=== PATIENT | male | born 1985 | race Caucasian/White ===

== ENCOUNTER 2016-09-05 16:32 | Emergency (ER) | payer MEDICAID ==
[2016-09-05 16:38] VITALS: TEMP 98.5; O2SAT 98
--- NOTE | 2016-09-05 17:17 | C.PDOC ---
Time Seen by Provider: 09/05/16 16:49 Chief Complaint (Nursing): Abnormal Skin Integrity Past Medical History Vital Signs: Last Vital Signs Temp 98.5 F 09/05/16 16:35 Pulse 90 09/05/16 16:35 Resp 16 09/05/16 16:35 BP 109/64 09/05/16 16:35 Pulse Ox 98 09/05/16 16:35 Family History: States: Unknown Family Hx - Social History Hx Alcohol Use: No Hx Substance Use: No - Immunization History Hx Tetanus Toxoid Vaccination: Yes Hx Influenza Vaccination: Yes Hx Pneumococcal Vaccination: Yes ED Course And Treatment O2 Sat by Pulse Oximetry: 98 Disposition - Disposition Additional Instructions: [email or web address] Dayana Juancarlos, IRLANDA (ASCP), JOMAR ([facility]) -[place] [phone]
--- NOTE | 2016-09-05 17:20 | C.PDOC ---
History Of Present Illness 30-year-old male, PMHx includes HS, presents to the emergency department with complaints of an abscess to left buttoc, that he developed a few days ago. Patient states he has a Hx of intermittent abscesses due to HS. Denies any fevers, nausea/vomiting, or any other associated symptoms. No other complaints at this time. Time Seen by Provider: 09/05/16 16:49 Chief Complaint (Nursing): Abnormal Skin Integrity History Per: Patient History/Exam Limitations: no limitations Onset/Duration Of Symptoms: Days Current Symptoms Are (Timing): Still Present Location Of Injury: Left: Buttock Quality Of Symptoms: Painful Severity: Moderate Past Medical History Reviewed: Historical Data, Nursing Documentation, Vital Signs Vital Signs: Last Vital Signs Temp 98.5 F 09/05/16 16:35 Pulse 90 09/05/16 16:35 Resp 16 09/05/16 16:35 BP 109/64 09/05/16 16:35 Pulse Ox 98 09/05/16 17:22 Family History: States: No Known Family Hx - Social History Hx Alcohol Use: No Hx Substance Use: No - Immunization History Hx Tetanus Toxoid Vaccination: Yes Hx Influenza Vaccination: Yes Hx Pneumococcal Vaccination: Yes Review Of Systems Constitutional: Negative for: Fever, Chills Respiratory: Negative for: Shortness of Breath Gastrointestinal: Negative for: Nausea, Vomiting Skin: Positive for: Other (abscess: left buttock) Physical Exam - Physical Exam Appears: Non-toxic, No Acute Distress Skin: Warm, Dry, Other (Left Buttock: [id number] complex wound/abscess with multiple drained tunnels. ) Neck: Normal ROM Respiratory: No Accessory Muscle Use Extremity: Normal ROM Neurological/Psych: Oriented x3, Normal Speech ED Course And Treatment O2 Sat by Pulse Oximetry: 98 (on RA) Pulse Ox Interpretation: Normal Disposition - Disposition Referrals: Elenita Brito MD [Staff Provider] - Disposition: HOME/ ROUTINE Disposition Time: 17:48 Condition: GOOD Additional Instructions: [email or web address] IRLANDA Flanagan (ASC), JOMAR ([facility]) -[place] [phone] Prescriptions: Doxycycline Monohydrate 100 mg PO BID #19 capsule Ibuprofen [Motrin] 600 mg PO TID #21 tab Instructions: Abscess (GEN) - Clinical Impression Clinical Impression: Hidradenitis suppurativa - PA / MANAGER RETAIL / Resident Statement MD/DO has reviewed & agrees with the documentation as recorded. - Scribe Statement The provider has reviewed the documentation as recorded by the Scribe (Raj Palumbo) All medical record entries made by the Scribe were at my direction and personally dictated by me. I have reviewed the chart and agree that the record accurately reflects my personal performance of the history, physical exam, medical decision making, and the department course for this patient. I have also personally directed, reviewed, and agree with the discharge instructions and disposition.
[2016-09-05 17:49] VITALS: BP 110/69; PULSE 72; RESP 18
== END 2016-09-05 17:58 | disposition home or self-care (01) ==
LOC: C.ER 16:32
DX: L73.2 Hidradenitis suppurativa (principal)
CPT/HCPCS: 96372; 99283; J1885

== ENCOUNTER 2018-06-08 19:11 | Emergency (ER) | payer SELFPAY ==
[2018-06-08 19:37] VITALS: BP 126/73; PULSE 87; RESP 20; TEMP 98.2; O2SAT 97
[2018-06-08] MEDS ORDERED: Lidocaine 1% Inj (20ml) IV ONE (19:47)
[2018-06-08] MEDS ORDERED: Lidocaine Hydrochloride 5 ML INJ ONE (19:51)
--- NOTE | 2018-06-08 19:57 | C.PDOC ---
History Of Present Illness 32 y/o male pt with hx of anxiety and hidradenitis suppurativa presents to the ER c/o of right under arm abscess for x3 days. Associated sx includes subjective fever and pain. Pt has no other complaints or associated sx at this time. Time Seen by Provider: 06/08/18 19:34 Chief Complaint (Nursing): Abnormal Skin Integrity History Per: Patient History/Exam Limitations: no limitations Onset/Duration Of Symptoms: Days (x3) Current Symptoms Are (Timing): Still Present Past Medical History Reviewed: Historical Data, Nursing Documentation, Vital Signs Vital Signs: Last Vital Signs Temp 98.2 F 06/08/18 19:21 Pulse 87 06/08/18 19:21 Resp 20 06/08/18 19:21 BP 126/73 06/08/18 19:21 Pulse Ox 97 06/08/18 19:21 Family History: States: Unknown Family Hx - Social History Hx Alcohol Use: No Hx Substance Use: No - Immunization History Hx Tetanus Toxoid Vaccination: Yes Hx Influenza Vaccination: Yes Hx Pneumococcal Vaccination: Yes Review Of Systems Except As Marked, All Systems Reviewed And Found Negative. Constitutional: Positive for: Fever (subjective ) Skin: Positive for: Other (under arm absecess +pain ) Physical Exam - Physical Exam Appears: Non-toxic, No Acute Distress Skin: Warm, Dry Head: Normacephalic Eye(s): bilateral: Normal Inspection Oral Mucosa: Moist Throat: Normal Neck: Normal ROM, Supple Chest: Symmetrical Cardiovascular: Rhythm Regular Respiratory: Normal Breath Sounds Gastrointestinal/Abdominal: Soft, No Tenderness Extremity: Normal ROM (x4), Other (abscess under right arm) Neurological/Psych: Oriented x3, Normal Speech ED Course And Treatment O2 Sat by Pulse Oximetry: 97 (RA) Pulse Ox Interpretation: Normal - Incision & Drainage Of Abscess Anesthesia: Lidocaine 1% Prep Used: Betadine Procedure: Incised W/Scalpel Blade#: (11), Drained Pus, Irrigated Cavity W/Saline, Packed W/Gauze, Cultures Obtained And Sent To Lab Medical Decision Making Medical Decision Making: plans: -- clindamycin -- morphine -- lidocaine 1% Disposition - Disposition Ref[place]: [facility] [place] [facility] [place] [facility] [Outside] [facility] [place] [Outside] Disposition: HOME/ ROUTINE Disposition Time: 20:49 Condition: IMPROVED Additional Instructions: Follow up in 48 hours for wound check and packing removal. Take clindamycin as direced and take Motrin for pain. Prescriptions: Clindamycin [Cleocin] 300 mg PO QID 10 Days #40 cap Ibuprofen [Motrin] 600 mg PO Q6 #20 tab Instructions: Abscess Incision and Drainage Forms: [employer] (Montserratian) - Clinical Impression Clinical Impression: Abscess of axilla, right - Scribe Statement The provider has reviewed the documentation as recorded by the Rachel Washington Do Provider Attestation: All medical record entries made by the Leoraibdiego were at my direction and personally dictated by me. I have reviewed the chart and agree that the record accurately reflects my personal performance of the history, physical exam, medical decision making, and the department course for this patient. I have also personally directed, reviewed, and agree with the discharge instructions and disposition.
[2018-06-08] MEDS ORDERED: Morphine 4 MG/ML VIAL ONE (20:01)
== END 2018-06-08 20:49 | disposition home or self-care (01) ==
LOC: C.ER 19:11
DX: L02.411 Cutaneous abscess of right axilla (principal)
CPT/HCPCS: 10060; 87070; 87181; 96372; 99284; J2270

== ENCOUNTER 2018-06-10 12:01 | Emergency (ER) | payer SELFPAY ==
[2018-06-10 12:10] VITALS: BP 118/77; PULSE 82; RESP 18; TEMP 98.2; O2SAT 98
--- NOTE | 2018-06-10 12:42 | C.PDOC ---
History Of Present Illness 32 year old male presents to ED for wound check s/p I&D 2 days ago. Patient had an abscess to his right axilla. Patient reports that the area has been feeling better and has become smaller. He reports pain at the site and has had fever and chills since yesterday. Patient denies numbness or weakness. Time Seen by Provider: 06/10/18 12:11 Chief Complaint (Nursing): Wound Check History Per: Patient History/Exam Limitations: no limitations Onset/Duration Of Symptoms: Days (2) Current Symptoms Are (Timing): Better Location Of Injury: Right: Arm (I&D to the axilla ), Posterior: Arm Past Medical History Reviewed: Historical Data, Nursing Documentation, Vital Signs Vital Signs: Last Vital Signs Temp 98.2 F 06/10/18 12:07 Pulse 82 06/10/18 12:07 Resp 18 06/10/18 12:07 BP 118/77 06/10/18 12:07 Pulse Ox 98 06/10/18 12:07 - Medical History PMH: No Chronic Diseases Surgical History: No Surg Hx Family History: States: Unknown Family Hx - Social History Hx Alcohol Use: No Hx Substance Use: No - Immunization History Hx Tetanus Toxoid Vaccination: No Hx Influenza Vaccination: No Hx Pneumococcal Vaccination: No Review Of Systems Constitutional: Positive for: Fever, Chills. Negative for: Weakness Musculoskeletal: Positive for: Arm Pain (pain to the right axilla) Neurological: Negative for: Weakness, Numbness Physical Exam - Physical Exam Appears: Well, Non-toxic, No Acute Distress, Other (comfortable) Skin: Normal Color, Warm, Dry Head: Atraumatic, Normacephalic Neck: Normal ROM, Supple Chest: Symmetrical, No Deformity Respiratory: No Accessory Muscle Use Extremity: Other (6 cm area of induration with central open wound to the right axilla, packing intact, tender to palpation, no fluctuance) Neurological/Psych: Oriented x3, Normal Speech, Normal Cognition ED Course And Treatment O2 Sat by Pulse Oximetry: 98 (in RA) Progress Note: Removed packing from wound site and reinsterted new packing. Patient tolderated well. Dressed wound with gauze. Patient instructed to continue taking antibiotics and return for wound check in 2 days. Disposition Counseled Patient/Family Regarding: Diagnosis, Need For Followup - Disposition Referrals: [facility] at [facility] [Outside] Disposition: HOME/ ROUTINE Disposition Time: 12:40 Condition: STABLE Additional Instructions: RETURN TO ER IN TWO DAYS FOR WOUND CHECK/PACKING REMOVAL CONTINUE YOUR ANTIBIOTICS RETURN TO ER IF YOU HAVE ANY CONCERNING SYMPTOMS Instructions: Wound Care (DC) Forms: [employer] (Malay) Print Language: CENTRAL AFRICAN - Clinical Impression Clinical Impression: Wound check, abscess, Encounter for removal of abscess packing - Scribe Statement The provider has reviewed the documentation as recorded by the Scribe (Lesli Chavez) All medical record entries made by the Scribe were at my direction and personally dictated by me. I have reviewed the chart and agree that the record accurately reflects my personal performance of the history, physical exam, medical decision making, and the department course for this patient. I have also personally directed, reviewed, and agree with the discharge instructions and disposition.
== END 2018-06-10 12:47 | disposition home or self-care (01) ==
LOC: C.ER 12:01
DX: Z48.00 Encounter for change or removal of nonsurgical wound dressing (principal); L02.411 Cutaneous abscess of right axilla

== ENCOUNTER 2018-06-12 11:57 | Emergency (ER) | payer SELFPAY ==
[2018-06-12 12:04] VITALS: BP 106/68; PULSE 82; RESP 18; TEMP 98.3; O2SAT 98
--- NOTE | 2018-06-12 12:22 | C.PDOC ---
History Of Present Illness The patient is a 32-year-old male who was evaluated in this ED on 06/08 for an abscess to his right underarm. Patient underwent incision and drainage of the area and was discharged with Rx for Clindamycin and Motrin and instructed to return after 48 hours for wound check and packing removal. On 06/10, patient was noted to be +MRSA and Proteus mirabilis. Patient was notified to stop Clindamycin and prescription for Bactrim was called in to his pharmacy. Patient then presented to the ED on same day for wound check, as he was previously instructed. Area was noted to be well-healing and he was discharged. Patient returns to the ED for wound check and packing removal today as instructed. He has noticed some irritation at the site where tape was applied and thinks he may be having an allergic reaction. Patient denies taking Benadryl or applying any topical ointments to the area. Patient states he has been complaint with Bactri m. He denies fever, chills. Time Seen by Provider: 06/12/18 12:07 Chief Complaint (Nursing): Wound Check History Per: Patient History/Exam Limitations: no limitations Onset/Duration Of Symptoms: Days Ago Current Symptoms Are (Timing): Better Location Of Injury: Right: Arm (underarm ) Quality Of Symptoms: denies: Painful, Itching, Swollen, Draining Additional History Per: Patient Past Medical History Reviewed: Historical Data, Nursing Documentation, Vital Signs Vital Signs: Last Vital Signs Temp 98.3 F 06/12/18 12:01 Pulse 82 06/12/18 12:01 Resp 18 06/12/18 12:01 BP 106/68 06/12/18 12:01 Pulse Ox 98 06/12/18 12:01 - Medical History PMH: No Chronic Diseases Surgical History: No Surg Hx Family History: States: Unknown Family Hx - Social History Hx Alcohol Use: No Hx Substance Use: No - Immunization History Hx Tetanus Toxoid Vaccination: No Hx Influenza Vaccination: No Hx Pneumococcal Vaccination: No Review Of Systems Constitutional: Negative for: Fever, Chills Skin: Positive for: Other (wound check s/p incision and drainage to right underarm. some irritation around site where tape was applied ) Physical Exam - Physical Exam Appears: Non-toxic, No Acute Distress Skin: Warm, Dry, Other (Tape was removed. Some erythema noted around skin, in dicating patient likely has an allergic reaction to the adhesive. Packing was removed. Erythema and induration noted. No purulent drainage expressed. ) Oral Mucosa: Moist Neck: Supple Chest: Symmetrical, No Deformity Extremity: Normal ROM, Capillary Refill (less than 2 seconds ) Neurological/Psych: Normal Speech, Normal Cognition ED Course And Treatment O2 Sat by Pulse Oximetry: 98 (on RA) Pulse Ox Interpretation: Normal Medical Decision Making Medical Decision Making: Bacitracin TOP applied to the site and advised to complete course of Bactrim Patient is advised to follow up with general surgeon for further evaluation, assessment and need for surgery. Patient verbalized understanding and agrees with plan. Patient is stable for discharge Disposition Counseled Patient/Family Regarding: Diagnosis, Need For Followup, Rx Given - Disposition Referrals: [facility] at [facility] [Outside] Flex Gomez MD [Staff Provider] - Disposition: HOME/ ROUTINE Disposition Time: 12:35 Condition: STABLE Additional Instructions: Continue Bacitracin to wound twice a day Take Benadryl and Pepcid daily for allergic reaction to skin Apply topical hydrocortisone cream to allergic reaction to skin Follow up with general surgery to for further assessment in 1-2 days Return to the ED if symptoms worsen Prescriptions: Bacitracin OINT 1 applic TP BID #1 tube DiphenhydrAMINE [Benadryl] 25 mg PO BID #14 cap Famotidine [Pepcid] 20 mg PO DAILY #14 tab Hydrocortisone/Aloe/Vit.e/A/D [Eq Anti-Itch Plus 1% Cream] 1 appl TP BID #1 tube Instructions: Wound Care (DC) Forms: [email or web address] (Hebrew) - Clinical Impression Clinical Impression: Wound check, abscess - PA / INDUSTRIAL RELATIONS WORKER / Resident Statement MD/DO has reviewed & agrees with the documentation as recorded. - Scribe Statement The provider has reviewed the documentation as recorded by the Scribe (Nargis Moya) All medical record entries made by the Scribe were at my direction and personally dictated by me. I have reviewed the chart and agree that the record accurately reflects my personal performance of the history, physical exam, medical decision making, and the department course for this patient. I have also personally directed, reviewed, and agree with the discharge instructions and disposition.
[2018-06-12] MEDS ORDERED: Bacitracin 500 Units/gm Oint Foilpak UD TOP ONE (12:24)
[2018-06-12] MEDS ORDERED: Bacitracin 500 Units/gm Oint Foilpak UD ONE (12:31)
== END 2018-06-12 12:48 | disposition home or self-care (01) ==
LOC: C.ER 11:57
DX: Z48.00 Encounter for change or removal of nonsurgical wound dressing (principal); L02.411 Cutaneous abscess of right axilla